=== PATIENT | male | born 1970 ===

== ENCOUNTER 2019-03-11 06:24 | Emergency (ER) | payer BC ==
[~2019-03-11] VITALS: Ht 182.9 cm; Wt 96.7 kg
[2019-03-11 09:02] VITALS: BP 121/71
== END 2019-03-11 10:05 ==
LOC: ED 09:59
DX: R07.89 Other chest pain (principal)
CPT/HCPCS: 36415; 71045; 80053; 83690; 83880; 84484; 85025; 85379; 93005; 96374; 99284; J1885